=== PATIENT | male | born 1995 | race African-American/Black ===

== ENCOUNTER 2017-06-16 01:23 | Emergency (ER) | payer SELFPAY ==
[~2017-06-16] VITALS: Ht 170.2 cm; Wt 58.2 kg
[2017-06-16] MEDS ORDERED: methylPREDNISolone SOD SUCC 125 MG/2 ML IVPush ONE (01:30)
[2017-06-16] MEDS ORDERED: DIPHENHYDRAMINE 50 MG/ML, 1ML IVPush ONE (01:30)
[2017-06-16] MEDS ORDERED: SODIUM CHLORIDE 0.9% 1,000ML IVBOLUS ONE (01:30)
[2017-06-16] MEDS ORDERED: EPINEPHRINE 1 MG/ML, 1ML SQ ONE (01:30)
[2017-06-16] MEDS ORDERED: SODIUM CHLORIDE FLUSH 10ML SYR IVF ONE (01:30)
[2017-06-16] MEDS ORDERED: FAMOTIDINE 20 MG/2 ML IVPush ONE (01:30)
[2017-06-16] MEDS ORDERED: DIPHENHYDRAMINE 50 MG/ML, 1ML ONE (02:37)
[2017-06-16] MEDS ORDERED: FAMOTIDINE 20 MG/2 ML ONE (02:37)
[2017-06-16] MEDS ORDERED: EPINEPHRINE 1 MG/ML, 1ML ONE (02:37)
[2017-06-16] MEDS ORDERED: methylPREDNISolone SOD SUCC 125 MG/2 ML ONE (02:37)
[2017-06-16 04:12] VITALS: BP 132/60
== END 2017-06-16 04:25 | disposition home or self-care (01) ==
LOC: ED 01:44
DX: T78.3XXA Angioneurotic edema, initial encounter (principal); F17.200 Nicotine dependence, unspecified, uncomplicated; Y92.9 Unspecified place or not applicable
CPT/HCPCS: 96361; 96372; 96374; 96375; 99284; J0171; J1200; J2930; J7030; S0028

== ENCOUNTER 2017-07-08 04:43 | Emergency (ER) | payer OTHER ==
[~2017-07-08] VITALS: Ht 170.2 cm; Wt 58.0 kg
[2017-07-08 04:44] VITALS: BP 117/74
== END 2017-07-08 05:52 | disposition left against medical advice (07) ==
LOC: ED 05:12
DX: S62.306A Unspecified fracture of fifth metacarpal bone, right hand, initial encounter for closed fracture (principal); X58.XXXA Exposure to other specified factors, initial encounter; Y93.89 Activity, other specified; Y92.89 Other specified places as the place of occurrence of the external cause; Y99.8 Other external cause status
CPT/HCPCS: 99281; 99282